=== PATIENT | female | born 1990 | race Two or more races ===

== ENCOUNTER 2025-01-06 14:38 | Emergency (ER) | payer OTHER ==
[~2025-01-06] VITALS: Ht 162.6 cm; Wt 63.5 kg
[2025-01-06] MEDS ORDERED: KETOROLAC TROMETHAMINE 60 MG VIAL IM ONE (15:30)
== END 2025-01-06 16:09 | disposition home or self-care (01) ==
LOC: ER 14:38
DX: S92.501A Displaced unspecified fracture of right lesser toe(s), initial encounter for closed fracture (principal)